=== PATIENT | male | born 1980 | race Caucasian/White ===

== ENCOUNTER 2020-02-01 12:43 | Emergency (ER) | payer SELFPAY ==
[2020-02-01 13:00] VITALS: BP 107/56; PULSE 78; TEMP 98.3; BMI 25.7
--- NOTE | 2020-02-01 13:57 | PDOC ---
History of Present Illness - General Chief Complaint: Pain Stated Complaint: DENTAL PAIN Time Seen by Provider: 02/01/20 13:25 History Source: Patient Exam Limitations: No Limitations - History of Present Illness Initial Comments: 02/01/20 13:51 39y M hx of dental problems presents with dental pain. Pt has been having increased pain in his R upper posterior mouth for th epast 3 days after biting into something hard. He notes he has had fractured teeth for a few years but hasnt saught definitive dental care due to life circumstances. He states he is usually ok without any pain if he is careflu with what he eats, but when he sometimes developes dental abcesses. he denies any fever/chills, n/v, neck pain ehadache, difficulty sawalloing or breathing. states he is trying to get everything in order to seek definitive dental care. deneis any other symptoms such as cp, sob, abd pain, back pain. Past History - Medical History Allergies/Adverse Reactions: Allergies Allergy/AdvReac Type Severity Reaction Status Date / Time No Known Allergies Allergy Verified 07/11/15 17:11 Home Medications: Ambulatory Orders Amoxicillin/Potassium Clav [Augmentin 875-125 Tablet] 1 each PO BID #14 tablet 02/01/20 COPD: No Other medical history: DENIES - Psycho-Social/Smoking History Smoking History: Current every day smoker Number of Cigarettes Smoked Daily: 10 Information on smoking cessation initiated: Yes - Substance Abuse Hx (Audit-C & DAST Scrn) How often the patient has a drink containing alcohol: Monthly or less Number of drinks the patient has on a typical day: 1 or 2 Score: In Men: 4 or > Positive; In Women: 3 or > Positive: 1 Screen Result (Pos requires Nsg. Audit-10AR): Negative In the last yr the pt used illegal drug/Rx for NonMed reason: No Score: Yes response is considered Positive: 0 Screen Result (Positive result requires Nsg. DAST-10): Negative Review of Systems - Review of Systems Able to Perform ROS?: Yes Comments:: 02/01/20 13:57 Constitutional - no reported Fever, Chills, HEENT: +dental pain no reported vision changes, sore throat Respiratory: no reported cough, sob, hemoptysis Cardiac: no reported chest pain, palpitations, light headedness, leg swelling Abd/GI: no reported abd pain, nausea, vomiting, blood per rectum, melena, diarrhea : no reported dysuria, frequency, discharge Musculskelatal - no reported back pain, joint swelling skin - no reported bruising, erythema, rash neurological: no reported headache, numbness, focal weakness, tingling, ataxia, hematologic: no reported easy bruising, easy bleeding *Physical Exam - Vital Signs Last Vital Signs Temp Pulse Resp BP Pulse Ox 98.3 F 78 18 107/56 L 99 02/01/20 12:44 02/01/20 12:44 02/01/20 12:44 02/01/20 12:44 02/01/20 12:44 - Physical Exam 02/01/20 13:57 GENERAL: The patient is awake, alert, and fully oriented, Nontoxic - in no acute distress. HEAD: Normocephalic, atraumatic. ENT: Normal voice, Moist mucous membranes, Poor dentition, several missing teeth (#16), And fractured teeth (#3, #14). There is no significant induration, erythema, fluctuance Noted along the gumline or in the face. NECK: Normal range of motion, supple, no mastoid tenderness LUNGS: Breath sounds equal, clear to auscultation bilaterally. No wheezes, no rhonchi, no rales. HEART: Regular rate and rhythm, normal S1 and S2 without murmur, rub or gallop. ABDOMEN: Soft, nontender, No guarding, no rebound. No CVA tenderness Medical Decision Making - Medical Decision Making 02/01/20 13:59 no signs of acute infection butwill give course of abx as prophylaxis as pt states this isusually how he feels early in the course highly recommended definitive management by dentist. pt states he will look for someone near where he lives. I discussed the physical exam findings, ancillary test results and final diagnoses with the patient. I answered all of the patient's questions. The pat ient was satisfied with the care received and felt comfortable with the discharge plan and treatment plan. The patient will call their primary care physician within 24 hours to arrange follow-up and will return to the Emergency Department with any new, persistent or worsening symptoms. Discharge - Discharge Information Problems reviewed: Yes Clinical Impression/Diagnosis: Pain, dental Condition: Improved Disposition: HOME - Admission No - Follow up/Referral - Patient Discharge Instructions Patient Printed Discharge Instructions: DI for Dental Pain Additional Instructions: Please follow-up with your dentist for management of your fractured teeth and dental problems. Return to the hospital if you have any fevers, chills, difficu lty swallowing difficulty breathing or any other concerns. Print Language: LITHUANIAN - Post Discharge Activity
== END 2020-02-01 14:12 | disposition home or self-care (01) ==
LOC: FER 12:43
DX: K08.89 Other specified disorders of teeth and supporting structures (principal)
CPT/HCPCS: 99282-25